=== PATIENT | male | born 1960 | race Caucasian/White ===

== ENCOUNTER 2020-10-02 17:30 | Emergency (ER) | payer MEDICARE ==
[2020-10-02] MEDS ORDERED: Sodium Chloride 0.9% 10 ML Syringe FLUSH PRN (17:39)
--- NOTE | 2020-10-02 17:46 | EDM.PDOC ---
ED HPI GENERAL MEDICAL PROBLEM - General Chief Complaint: Respiratory Problem Stated Complaint: SOB Time Seen by Provider: 10/02/20 17:35 Source of Information: Reports: Patient, Family History Limitations: Reports: No Limitations - History of Present Illness INITIAL COMMENTS - FREE TEXT/NARRATIVE: Js is a 60 year old male with PMH of hypertension, CAD, CHF, DM, Hyperlipid emia that presents to the ER with complaints of increased shortness of breath over the last 2 days. Has been travelling here to [place] from [place] as relocating here. Admits to eating more salt, not being able to elevate his legs or get as much activity as they were on a time line to get here and get the moving truck back. has been under more stress with that and unloading and settling in. Has been taking his Lasix but is out of some of his other meds and needs to establish care here. Has an AICD, has not fired. States was placed due to an RI he believes with congestive heart failure. Has noted more swelling in his legs that do not seem to be improving even when taking the Lasix. Onset: Gradual Duration: Day(s): Location: Reports: Chest Associated Symptoms: Reports: Cough, Shortness of Breath. Denies: Confusion, Chest Pain, Fever/Chills, Loss of Appetite, Nausea/Vomiting Past Medical History Cardiovascular History: Reports: Automatic Implantable Cardioverter Defibrillators, CAD, Heart Failure Gastrointestinal History: Reports: GERD Neurological History: Reports: Neuropathy, Diabetic Endocrine/Metabolic History: Reports: Diabetes, Type II ED ROS GENERAL - Review of Systems Review Of Systems: See Below Constitutional: Reports: Malaise, Weakness, Fatigue. Denies: Fever, Chills HEENT: Denies: Ear Pain, Rhinitis, Sinus Problem, Throat Pain, Vertigo Respiratory: Reports: Shortness of Breath, Cough (chronic cough but is worsening) Cardiovascular: Reports: Edema. Denies: Chest Pain, Lightheadedness Endocrine: Reports: Fatigue GI/Abdominal: Denies: Abdominal Pain, Constipation, Diarrhea, Nausea, Vomiting : Reports: No Symptoms Musculoskeletal: Reports: No Symptoms Skin: Reports: No Symptoms Neurological: Reports: Weakness Psychiatric: Reports: Anxiety ED EXAM, GENERAL - Physical Exam Exam: See Below Exam Limited By: No Limitations General Appearance: Alert, WD/WN, Mild Distress Ears: Normal External Exam, Normal TMs Nose: Normal Inspection, Normal Mucosa, No Blood Throat/Mouth: Normal Inspection, Normal Oropharynx Head: Normocephalic Neck: Normal Inspection, Supple, Non-Tender Respiratory/Chest: Decreased Breath Sounds Cardiovascular: Tachycardia GI/Abdominal: Normal Bowel Sounds, Soft Extremities: Pedal Edema (1+) Neurological: Alert, Oriented Skin Exam: Pallor #1 Interpretation EKG Date: 10/02/20 Rhythm: Other (sinus tachycardia) P-Wave: Enlarged QRS: LBBB ST-T: Normal Comparison: NA - No Prior EKG Course - Orders/Labs/Meds Orders: Active Orders 24 hr Category Date Time Status Cardiac Monitoring [RC] . DIRECTED Care 10/02/20 17:39 Active EKG Documentation Completion [RC] STAT Care 10/02/20 17:39 Active Heparin Sodium/0.45% NaCl [Heparin 25,000 Units in 1/2 Med 10/02/20 18:45 Ordered NS 500 ML] 25,000 units in 500 ml IV TITRATE Sodium Chloride 0.9% [Saline Flush] Med 10/02/20 17:39 Active 10 ml FLUSH ASDIRECTED PRN Saline Lock Insert [OM.PC] Stat Oth 10/02/20 17:39 Ordered Medication Orders Heparin Sodium/Sodium Chloride (Heparin 25,000 Units In 1/2 Ns 500 Ml) 25,000 units in 500 mls @ 0.24 mls/hr IV TITRATE JAIR; Protocol Sodium Chloride (Sodium Chloride 0.9% 10 Ml Syringe) 10 ml FLUSH ASDIRECTED PRN PRN Reason: Keep Vein Open Labs: Laboratory Tests 10/02/20 10/02/20 10/02/20 Range/Units 17:45 17:45 17:45 WBC 4.2 (4.0-10.0) x10^3/uL RBC 4.75 (4.5-6.0) x10^6/uL Hgb 15.2 (14.0-18.0) g/dL Hct 43.4 (40.0-52.0) % MCV 91.4 (78.0-93.0) fL MCH 32.0 (26.0-32.0) pg MCHC 35.0 (32.0-36.0) g/dL RDW Coeff of Maikel 14.9 (10.0-15.0) % Plt Count 161 (130-400) x10^3/uL Neut % (Auto) 78.9 (50.0-80.0) % Lymph % (Auto) 12.7 L (25.0-50.0) % [place] % (Auto) 7.4 (2.0-11.0) % Eos % (Auto) 0.5 (0.0-4.0) % Baso % (Auto) 0.5 (0.2-1.2) % D-Dimer, Quantitative 0.82 H (<=0.58) mg/LFEU Sodium 132 L (136-145) mmol/L Potassium 3.9 (3.5-5.1) mmol/L Chloride 97 L (98-107) mmol/L Carbon Dioxide 26 (21-32) mmol/L Anion Gap 12.9 (5-15) mmol/L BUN 25 H (7-18) mg/dL Creatinine 1.6 H (0.70-1.30) mg/dL Est Cr Clr Drug Dosing TNP Estimated GFR (MDRD) 45 Glucose 300 H (70-99) mg/dL Calcium 8.2 L (8.5-10.1) mg/dL Corrected Calcium 8.8 (8.5-10.1) mg/dL Total Bilirubin 1.0 (0.2-1.0) mg/dL AST 29 (15-37) U/L ALT 30 (16-63) U/L Alkaline Phosphatase 109 (46-116) U/L Creatine Kinase 200 (39-308) U/L Troponin I High Sens 270 H* (<=76) ng/L NT-Pro-B Natriuret Pep 2067 H (<=125) pg/mL Total Protein 7.5 (6.4-8.2) g/dL Albumin 3.3 L (3.4-5.0) g/dL Globulin 4.2 Albumin/Globulin Ratio 0.79 Meds: Medications Generic Name Dose Route Start Last Admin Trade Name Freq PRN Reason Stop Dose Admin Heparin Sodium/Sodium Chloride 25,000 units in 500 mls @ 0.24 mls/hr 10/02/20 18:45 Heparin 25,000 Units In 1/2 Ns 500 Ml IV TITRATE JAIR Protocol 12 UNITS/HR Sodium Chloride 10 ml 10/02/20 17:39 Sodium Chloride 0.9% 10 Ml Syringe FLUSH ASDIRECTED PRN Keep Vein Open Discontinued Medications Generic Name Dose Route Start Last Admin Trade Name Freq PRN Reason Stop Dose Admin Heparin Sodium (Porcine) 4,000 units 10/02/20 18:34 Heparin Sodium 5,000 Units/Ml Vial IVPUSH 10/02/20 18:35 .BOLUS ONE - Re-Assessments/Exams Free Text/Narrative Re-Assessment/Exam: 10/02/20 18:30 Lab results received. Elevated troponin, creatinine, ProBNP, D-dimer. Chest xray shows possible infiltrate right lower lobe. Discussed with patient and . Contacted [facility] and spoke with Dr. Burnette, hospitalist. Informed of labs and status. Agreed to accept the patient in transfer. Advised to start a heparin drip. Departure - Departure Time of Disposition: 18:46 Disposition: DC/Tfer to [facility] 02 Reason for Transfer *Q: Other (elevated troponin, d-dimer, proBNP, glucose, creatinine) Condition: Undetermined Clinical Impression: Elevated troponin, CHF (congestive heart failure), DANN (acute kidney injury), Pneumonia Referrals: PCP,Unobtain [Primary Care Provider] - Forms: ED Department Discharge Additional Instructions: transfer to [facility], Dr. Burnette. - My Orders Last 24 Hours: My Active Orders 10/02/20 17:39 Cardiac Monitoring [RC] . DIRECTED EKG Documentation Completion [RC] STAT Sodium Chloride 0.9% [Saline Flush] 10 ml FLUSH ASDIRECTED PRN Saline Lock Insert [OM.PC] Stat 10/02/20 18:45 Heparin Sodium/0.45% NaCl [Heparin 25,000 Units in 1/2 NS 500 ML] 25,000 units in 500 ml IV TITRATE - Assessment/Plan Last 24 Hours: My Active Orders 10/02/20 17:39 Cardiac Monitoring [RC] . DIRECTED EKG Documentation Completion [RC] STAT Sodium Chloride 0.9% [Saline Flush] 10 ml FLUSH ASDIRECTED PRN Saline Lock Insert [OM.PC] Stat 10/02/20 18:45 Heparin Sodium/0.45% NaCl [Heparin 25,000 Units in 1/2 NS 500 ML] 25,000 units in 500 ml IV TITRATE
--- NOTE | 2020-10-02 18:15 | CR ---
[id number] RAD/RAD Chest PA And Lateral EXAM: RAD Chest PA And Lateral CLINICAL DATA: CHEST PAIN COMPARISON: No previous similar exam is available. FINDINGS: There is discoid atelectasis in the left perihilar region. There is peribronchial thickening at the right lung base The cardiac silhouette is enlarged The pacemaker is seen IMPRESSION: POSSIBLE EARLY INFILTRATE AT RIGHT LUNG BASE Tamir Kaur MD 10/02/20 0839 Thank you for allowing us to participate in the care of your patient.
[2020-10-02 18:19] LABS: CHLORIDE,CL 97 mmol/L (98-107); SODIUM,NA 132 mmol/L (136-145)
[2020-10-02 18:22] LABS: ANION GAP 12.9 mmol/L (5-15)
[2020-10-02] MEDS ORDERED: Heparin Sodium 5,000 Units/ML Vial IVPUSH ONE (18:34)
[2020-10-02] MEDS ORDERED: Heparin Sodium/0.45% NaCl 25,000 UNITS/500 ML BAG IV SCH (18:45)
[2020-10-02 18:54] LABS: PTT,PARTIAL THROMBOPLSTIN TIME 24.5 SEC (25.6-32.8)
== END 2020-10-02 19:45 | disposition short-term general hospital (02) ==
LOC: VM.ED 17:30
DX: J18.9 Pneumonia, unspecified organism (principal); N17.9 Acute kidney failure, unspecified; I50.9 Heart failure, unspecified; R79.89 Other specified abnormal findings of blood chemistry; I25.10 Atherosclerotic heart disease of native coronary artery without angina pectoris; E11.40 Type 2 diabetes mellitus with diabetic neuropathy, unspecified; Z95.810 Presence of automatic (implantable) cardiac defibrillator
CPT/HCPCS: 71046; 80053; 82550; 83880; 84484; 85025; 85379; 85610; 85730; 93010; 96374; 99284; 99285-25; J1644

== ENCOUNTER 2020-10-03 21:12 | Emergency (ER) | payer MEDICARE ==
[~2020-10-03 21:12] MED LIST: EPINEPHrine 1:10,000 1 MG/10 ML Syringe ONE; LORazepam 2 MG/ML SDV ONE; Lidocaine 2% 100 MG/5 ML Syringe ONE; Midazolam 1 MG/ML 2 ML SDV ONE; Sodium Bicarbonate 8.4% 50 MEQ/50 ML Syringe ONE; Succinylcholine 200 MG/10 ML MDV ONE; fentaNYL 100 MCG/2 ML SDV ONE; methylPREDNISolone Sodium Succinate 125 MG/2 ML SDV ONE
[2020-10-03] MEDS ORDERED: LORazepam 2 MG/ML SDV ONE (21:30)
[2020-10-03] MEDS ORDERED: Rocuronium 50 MG/5 ML Vial ONE (22:00)
[2020-10-03] MEDS ORDERED: Succinylcholine 200 MG/10 ML MDV ONE (22:01)
[2020-10-03 22:17] LABS: CHLORIDE,CL 98 mmol/L (98-107); SODIUM,NA 133 mmol/L (136-145)
[2020-10-03 22:22] LABS: ANION GAP 20.2 mmol/L (5-15)
[2020-10-03] MEDS ORDERED: Sodium Chloride 0.9% 1,000 ML IV ONE (22:25)
--- NOTE | 2020-10-03 23:11 | EDM.PDOC ---
ED HPI GENERAL MEDICAL PROBLEM - General Chief Complaint: Respiratory Problem Stated Complaint: SOB Time Seen by Provider: 10/03/20 21:13 Source of Information: Reports: EMS History Limitations: Reports: Respiratory Distress - History of Present Illness INITIAL COMMENTS - FREE TEXT/NARRATIVE: Js is a 60 year old male who presents to ER per EMS with complaints of increased shortness of breath. Was actually seen in the ER last night for similar complaints. Was transferred to [facility] last night for elevated troponin, CHF, DANN, pneumonia. Had been given Lasix IV and started on Heparin drip. states he left [facility] this am and returned back to [place]. Started getting more short of breath an hour prior to calling EMS. On EMS arrival, patient was restless, mottled and resisting care. Oxygen sats 90% on 15 liters of oxygen on arrival. Was given a duoneb per EMS and Lasix 40 mg IV given. Solu Medrol 125 mg given on arrival. Onset: Today, Gradual Duration: Hour(s):, Getting Worse Severity: Severe Associated Symptoms: Reports: Confusion, Shortness of Breath Treatments COLOR BLENDER: Reports: Breathing Treatments, Other Medication(s), Oxygen, See EMS Report Other Treatments COLOR BLENDER: IV Solu Medrol, DuoNeb - Related Data Allergies Allergy/AdvReac Type Severity Reaction Status Date / Time No Known Allergies Allergy Verified 10/02/20 20:24 Home Meds: Home Meds Aspirin 81 mg PO DAILY 10/02/20 [History] Empagliflozin [Jardiance] 10 mg PO DAILY 10/02/20 [History] Furosemide [Lasix] 40 mg PO BID 10/02/20 [History] Gabapentin [Neurontin] 600 mg PO BEDTIME 10/02/20 [History] Isosorbide Mononitrate [Imdur] 30 mg PO DAILY 10/02/20 [History] Omeprazole 20 mg PO DAILY 10/02/20 [History] Ranolazine [Ranexa] 500 mg PO DAILY 10/02/20 [History] atorvaSTATin [Lipitor] 80 mg PO DAILY 10/02/20 [History] lisinopriL [Lisinopril] 10 mg PO DAILY 10/02/20 [History] metFORMIN HCl [Metformin HCl] 500 mg PO DAILY 10/02/20 [History] Past Medical History Cardiovascular History: Reports: Automatic Implantable Cardioverter Defibrillators, CAD, Heart Failure Gastrointestinal History: Reports: GERD Neurological History: Reports: Neuropathy, Diabetic Endocrine/Metabolic History: Reports: Diabetes, Type II Social & Family History - Tobacco Use Tobacco Use Status *Q: Current Every Day Tobacco User ED ROS GENERAL - Review of Systems Review Of Systems: Unable To Obtain Reason Not Obtained: Patient confused, restless, uncooperative Respiratory: Reports: Shortness of Breath ED EXAM, GENERAL - Physical Exam Exam: See Below Free Text/Narrative:: 2111-Patient presents to ER per EMS with complaints of shortness of breath. relates had been getting more and more short of breath over the last hour prior to calling EMS. Was mottled, restless and uncooperative. EMS was able to get an IV in his left hand and patient pulled it out after he was given a dose of IV Lasix after he arrived. Pulling at oxygen mask. Pulling on oxygen sat probe, climbing off the bed. Not able to be redirected. Difficult to obtain vital signs due to patient restlessness Patient given IM Ativan to help with restlessness. Much difficulty obtaining IV site. Ultrasound was used by nurse after multiple attempts without success. IO inserted per EMS. IV Line started in left hand eventually and able to obtain lab draw. At this point, patient lying back on bed. Sats in low 80s when able to trace. BiPap initiated but sats remained low. RSI given with Fentanyl, Versed and Succinylcholine. First attempt at intubation unsuccessful by this provider. Continued to provide high flow oxygen by bagging patient. Second attempt at intubation by childcare center director successful with 7.5 ET tube. Ventilator attached tidal volume 500 ml, respiratory rate 32, FiO2 at 100% per Dr. Chaidez at [facility]. Initial capnography at 22-30. Patient heart rate from tachycardic to bradycardic to PEA after intubation. CPR started, Raman placed. Epinephrine 1 mg x3 doses given. Defibrillated x2 due to noted v fib with return back to PEA. Sodium bicarb and lidocaine given. Labs show troponin of 425. ProBNP 9598. Creatinine increased to 2.1. All higher values that last evening. CPR continued. notified of patient status. by patient's side. Time of 2237. See code blue sheet for more accurate times. Exam Limited By: Respiratory Distress General Appearance: Severe Distress Head: Normocephalic Neck: Normal Inspection, Supple Respiratory/Chest: Respiratory Distress, Decreased Breath Sounds, Crackles Cardiovascular: Tachycardia GI/Abdominal: Soft Extremities: Other (mottled, cool ) Neurological: Confused, Other (uncoooperative) Skin Exam: Cool, Pallor #1 Interpretation EKG Date: 10/04/20 Rhythm: NSR P-Wave: Enlarged QRS: LBBB ST-T: Elevated Comparison: Change From Previous EKG EKG Interpretation Comments: Acute ME, inferior infarct, acute Course - Orders/Labs/Meds Labs: Laboratory Tests 10/03/20 10/03/20 Range/Units 21:48 21:48 WBC 5.8 (4.0-10.0) x10^3/uL RBC 5.53 (4.5-6.0) x10^6/uL Hgb 17.6 D (14.0-18.0) g/dL Hct 50.4 (40.0-52.0) % MCV 91.1 (78.0-93.0) fL MCH 31.8 (26.0-32.0) pg MCHC 34.9 (32.0-36.0) g/dL RDW Coeff of Maikel 14.9 (10.0-15.0) % Plt Count 145 (130-400) x10^3/uL Neut % (Auto) 73.7 (50.0-80.0) % Lymph % (Auto) 21.7 L (25.0-50.0) % [place] % (Auto) 4.3 (2.0-11.0) % Eos % (Auto) 0.0 (0.0-4.0) % Baso % (Auto) 0.3 (0.2-1.2) % Sodium 133 L (136-145) mmol/L Potassium 4.2 (3.5-5.1) mmol/L Chloride 98 (98-107) mmol/L Carbon Dioxide 19 L (21-32) mmol/L Anion Gap 20.2 H (5-15) mmol/L BUN 26 H (7-18) mg/dL Creatinine 2.1 H (0.70-1.30) mg/dL Est Cr Clr Drug Dosing TNP Estimated GFR (MDRD) 33 Glucose 277 H (70-99) mg/dL Calcium 8.2 L (8.5-10.1) mg/dL Corrected Calcium Cancelled Total Bilirubin Cancelled AST Cancelled ALT Cancelled Alkaline Phosphatase Cancelled Troponin I High Sens 425 H* (<=76) ng/L NT-Pro-B Natriuret Pep 9598 H (<=125) pg/mL Total Protein Cancelled Albumin Cancelled Globulin Cancelled Albumin/Globulin Ratio Cancelled Meds: Medications Discontinued Medications Generic Name Dose Route Start Last Admin Trade Name [place] PRN Reason Stop Dose Admin Epinephrine HCl Confirm 10/04/20 03:11 Epinephrine 1 Mg/1 Ml Amp Administered 10/04/20 03:12 Dose 3 mg .ROUTE .STK-MED ONE Epinephrine HCl Confirm 10/04/20 03:13 Epinephrine 1:10,000 1 Mg/10 Ml Syringe Administered 10/04/20 03:14 Dose 4 mg .ROUTE .STK-MED ONE Fentanyl Confirm 10/04/20 02:30 Fentanyl 100 Mcg/2 Ml Sdv Administered 10/04/20 02:31 Dose 100 mcg .ROUTE .STK-MED ONE Lidocaine HCl Confirm 10/04/20 03:10 Lidocaine 2% 100 Mg/5 Ml Syringe Administered 10/04/20 03:11 Dose 100 mg .ROUTE .STK-MED ONE Lorazepam Confirm 10/03/20 21:30 Lorazepam 2 Mg/Ml Sdv Administered 10/03/20 21:31 Dose 2 mg .ROUTE .STK-MED ONE Midazolam HCl Confirm 10/04/20 02:30 Midazolam 1 Mg/Ml 2 Ml Sdv Administered 10/04/20 02:31 Dose 2 mg .ROUTE .STK-MED ONE Rocuronium [place] Confirm 10/03/20 22:00 Rocuronium 50 Mg/5 Ml Vial Administered 10/03/20 22:01 Dose 100 mg .ROUTE .STK-MED ONE Sodium Bicarbonate Confirm 10/04/20 03:07 Sodium Bicarbonate 8.4% 50 Meq/50 Ml Syringe Administered 10/04/20 03:08 Dose 50 meq .ROUTE .STK-MED ONE Succinylcholine Chloride Confirm 10/03/20 22:01 Succinylcholine 200 Mg/10 Ml Mdv Administered 10/03/20 22:02 Dose 400 mg .ROUTE .STK-MED ONE - Re-Assessments/Exams Free Text/Narrative Re-Assessment/Exam: 10/03/20 23:58 See exam findings Departure - Departure Time of Disposition: 22:37 Disposition: 20 Clinical Impression: Acute ME, CHF (congestive heart failure), Respiratory arrest before cardiac arrest - Discharge Information Referrals: PCP,None [Primary Care Provider] - Forms: ED Department Discharge
[2020-10-04] MEDS ORDERED: fentaNYL 100 MCG/2 ML SDV ONE (02:30)
[2020-10-04] MEDS ORDERED: Midazolam 1 MG/ML 2 ML SDV ONE (02:30)
[2020-10-04] MEDS ORDERED: Sodium Bicarbonate 8.4% 50 MEQ/50 ML Syringe ONE (03:07)
[2020-10-04] MEDS ORDERED: Lidocaine 2% 100 MG/5 ML Syringe ONE (03:10)
[2020-10-04] MEDS ORDERED: EPINEPHrine 1 MG/1 ML Amp ONE (03:11)
[2020-10-04] MEDS ORDERED: EPINEPHrine 1:10,000 1 MG/10 ML Syringe ONE (03:13)
== END 2020-10-04 02:50 | disposition expired ==
LOC: VM.ED 21:12
DX: I46.9 Cardiac arrest, cause unspecified (principal); R09.2 Respiratory arrest; I21.9 Acute myocardial infarction, unspecified; I25.10 Atherosclerotic heart disease of native coronary artery without angina pectoris; I50.9 Heart failure, unspecified; K21.9 Gastro-esophageal reflux disease without esophagitis; E11.40 Type 2 diabetes mellitus with diabetic neuropathy, unspecified; Z72.0 Tobacco use; Z79.82 Long term (current) use of aspirin; Z79.84 Long term (current) use of oral hypoglycemic drugs; Z79.899 Other long term (current) drug therapy; Z95.810 Presence of automatic (implantable) cardiac defibrillator
CPT/HCPCS: 31500; 36680; 51702; 80048; 83880; 84484; 85025; 92950; 93010; 96374; 96375; 99284; 99285-25; J0171; J0330; J2060; J2250; J2930; J3010; J7030